=== PATIENT | female | born 1985 | race Caucasian/White ===

== ENCOUNTER 2021-12-13 16:41 | Emergency (ER) | payer MEDICAID, MEDICARE ==
[2021-12-13] MEDS ORDERED: Sodium Chloride 0.9% 1,000 ML IV ONE (16:46)
[2021-12-13] MEDS ORDERED: diphenhydrAMINE 50 MG/ML SDV IVPUSH ONE ×2 (16:47→17:22)
[2021-12-13] MEDS ORDERED: Morphine 2 MG/ML SYRINGE IVPUSH ONE ×3 (16:48→17:49)
[2021-12-13] MEDS: Promethazine 25 MG in Sodium Chloride 0.9% 100 ML IV STA (17:17)
== END 2021-12-13 18:25 | disposition home or self-care (01) ==
LOC: KA.ED 16:41
DX: R10.9 Unspecified abdominal pain (principal)
CPT/HCPCS: 96361; 96365; 96375; 96376; 99283; 99283-25; J1200; J2270; J2550; J7030